=== PATIENT | female | born 1990 | race Hispanic/Latino ===

== ENCOUNTER 2018-04-11 15:40 | Emergency (ER) | payer SELFPAY ==
[~2018-04-11] VITALS: Ht 152.4 cm; Wt 76.5 kg
[2018-04-11 16:24] LABS: HEMATOCRIT 32.2 % (36.0-46.0); HEMOGLOBIN 10.9 G/DL (11.9-15.5); MCH 26.1 PG (29.0-34.0); MCHC 33.9 G/DL (30.0-36.0); PLATELET COUNT 316 K/uL (156-360); RBC DIS.WIDTH-CV 15.9 % (11.8-14.6); RBC DIS.WIDTH-SD 44.4 % (39-53); RED BLOOD COUNT 4.18 M/uL (3.80-5.20)
[2018-04-11 16:48] LABS: QUANTITATIVE HCG 3279.8 MIU/ML
[2018-04-11 16:56] LABS: ALBUMIN 4.2 g/dL (3.2-4.8); CHLORIDE 106 mEq/L (99-109); POTASSIUM 3.6 mEq/L (3.7-5.4); SODIUM 137 mEq/L (136-147)
[2018-04-11 16:58] LABS: GLUCOSE 91 mg/dL (70-99); TOTAL PROTEIN 8.2 g/dL (6.4-8.3)
[2018-04-11 17:00] LABS: TOTAL BILIRUBIN 0.7 mg/dL (0.0-1.0)
[2018-04-11 17:02] LABS: ALKALINE PHOSPHATASE 141 IU/L (3-129); CREATININE 0.6 mg/dL (0.6-1.3); GFR ESTIMATE (CALCULATED) > 59 mL/min/
[2018-04-11 17:03] LABS: AST (GOT) 30 IU/L (2-34); UREA NITROGEN (BUN) 8 mg/dL (9-23)
[2018-04-11 17:05] LABS: ALT (GPT) 38 IU/L (3-49)
[2018-04-11 17:10] LABS: APPEARANCE SL.HAZY ((CLEAR)); BILIRUBIN NEGATIVE; BLOOD LARGE; GLUCOSE (STRIP) NEGATIVE; KETONES NEGATIVE; LEUKOCYTES TRACE; NITRITE NEGATIVE; PROTEIN (STRIP) 100; SPECIFIC GRAVITY 1.006 (1.000-1.030); UROBILINOGEN 0.2 MG/DL (0.2-1.0)
[2018-04-11 17:11] LABS: COLOR RED ((YELLOW))
[2018-04-11 17:39] LABS: BACTERIA RARE /HPF; EPITHELIAL CELLS RARE /HPF; MUCUS NONE SEEN /LPF; RED BLOOD CELLS TNTC /HPF (0-5); UCUL ADDED? YES; WHITE BLOOD CELLS RARE /HPF (0-5)
[2018-04-11 21:03] VITALS: BP 139/76
== END 2018-04-11 21:06 | disposition home or self-care (01) ==
LOC: EME 15:40
DX: O03.9 Complete or unspecified spontaneous abortion without complication (principal); R30.0 Dysuria; Z3A.12 12 weeks gestation of pregnancy
CPT/HCPCS: 76801; 80053; 81003; 84702; 85027; 86850; 86900; 86901; 87086; 99281; 99284